=== PATIENT | male | born 1930 | race Caucasian/White ===

== ENCOUNTER 2020-05-14 08:20 | Day surgery (SDC) | payer MEDICARE, BC ==
[~2020-05-14] VITALS: Ht 167.6 cm; Wt 70.0 kg
[2020-05-14] VITALS (7 sets, daily range): BP systolic 98–163; BP diastolic 42–75; PULSE 52–63; TEMP 97–98.3
[~2020-05-14 08:20] MED LIST: CALCITRIOL PO; COZAAR100 MG PO; FLOMAX 0.40.4 MG/CAP PO; LASIX 20MG TABL20 MG PO; LASIX 40MG TABL40 MG PO; LOPRESSOR 225 MG/TAB PO; LOPRESSOR 550 MG/TAB PO; NORVASC 5MG5 MG/TAB PO; PROTONIX 40MG T40 MG PO; TOPROL XL100 MG PO; ZOFRAN ODT4 MG PO; ZOLOFT 25MG25 MG PO; ZYLOPRIM 100MG100 MG PO
[2020-05-14 09:46] LABS: CALCIUM 8.8 mg/dL (8.4-10.2); CREATININE, serum 2.81 (0.66-1.25); POTASSIUM 4.4 mmol/L (3.4-5.0)
[2020-05-14] MEDS ORDERED: TYLENOL SU650 MG/SUP RC (09:52)
[2020-05-14] MEDS ORDERED: VENTOLIN0.09 MG IH (09:53)
[2020-05-14] MEDS ORDERED: NORVASC 5MG5 MG/TAB PO (09:54)
[2020-05-14] MEDS ORDERED: BIOTENE DRY M1000 ML PO (09:55)
[2020-05-14] MEDS ORDERED: DULCOLAX S10 MG/SUPP RC (09:56)
[2020-05-14] MEDS ORDERED: COZAAR100 MG PO (09:57)
[2020-05-14] MEDS ORDERED: DEBROX OT (09:58)
[2020-05-14] MEDS ORDERED: FLOMAX 0.40.4 MG/CAP PO (09:58)
[2020-05-14] MEDS ORDERED: IMODIUM 2MG CAPS2 MG PO (09:59)
[2020-05-14] MEDS ORDERED: LASIX 80MG TABL80 MG PO (10:01)
[2020-05-14] MEDS ORDERED: MILK OF MA400 MG/52 PO (10:02)
[2020-05-14] MEDS ORDERED: PROTONIX 40MG T40 MG PO (10:02)
[2020-05-14] MEDS ORDERED: TOPROL XL100 MG PO (10:04)
--- NOTE | 2020-05-14 10:04 | NUR ---
Initial visit; Patient thanked Telecasting Technician for offering prayer prior to his surgical procedure.
[2020-05-14] MEDS ORDERED: TYLENOL 325MG325 MG PO (10:05)
[2020-05-14] MEDS ORDERED: ZOLOFT 25MG25 MG PO (10:06)
[2020-05-14] MEDS ORDERED: ZOFRAN 4MG T4 MG/TAB PO (10:06)
--- NOTE | 2020-05-14 12:40 | NUR ---
TO RM 6 PER CART FROM OR. AROUSES TO VERBAL STIMULI AND FALLS BACK TO SLEEP. LEFT ARM FLACID FROM BLOCK. LI SET OVER INCISION SITE CLEAN DRY INTACT. THRILL NOTED LEFT ARM. NO SIGNS OF PAIN PER GRIMACE
--- NOTE | 2020-05-14 12:55 | NUR ---
O2 SAT 89-90% WHEN SLEEPING. PLACED 2L PER NC AND SATS ELEVATED TO 99% ON ROOM AIR.
--- NOTE | 2020-05-14 13:40 | NUR ---
CONTINUES TO SLEEP SOUNDLY AND SNORING AT TIMES. 02 SAT 100% ON 2L.
--- NOTE | 2020-05-14 14:00 | NUR ---
SLEEPING- NO CHANGES
--- NOTE | 2020-05-14 14:30 | NUR ---
MORE AWAKE AND TAKING SIPS OF WATER. REFUSED ANYTHIING TO EAT. DISCONTINUED O2
--- NOTE | 2020-05-14 14:30 | NUR ---
ABLE TO MOVE LEFT ARM. GOOD THRILL NOTED AT FISTULA SITE.
--- NOTE | 2020-05-14 14:45 | NUR ---
REPORT CALLED TO BINH AT [facility], INFORMED HER THAT PATIENT HAS DC INSTRUCTIONS. DEPENDS CHECKED AND ARE DRY. ATTEMPTED TO CALL [facility]- UNABLE TO LEAVE MESSAGE. PATIENT RECEIVED DISCHARGE INSTRUCTIONS AND VERBALIZED UNDERSTANDING- RECEIVED FOLDER WITH DISCHARGE INFORMATION DISCONTINUED IV AND INT ASSISTED PATIENT DRESSED AND 2 ASSISTED PATIENT BACK INTO WC FROM [facility].
--- NOTE | 2020-05-14 15:15 | NUR ---
DISCAHRGED PER WC BY NURSING STAFF TO PRIVATE CAR IN CARE JENNIFERK STAFF.
== END 2020-05-14 15:36 | disposition home or self-care (01) ==
LOC: SDCO 08:20
PROVIDERS: Surgery
DX: E11.22 Type 2 diabetes mellitus with diabetic chronic kidney disease (principal); I12.0 Hypertensive chronic kidney disease with stage 5 chronic kidney disease or end stage renal disease; N18.6 End stage renal disease; D63.1 Anemia in chronic kidney disease; E11.21 Type 2 diabetes mellitus with diabetic nephropathy; F32.9 Major depressive disorder, single episode, unspecified; Z99.2 Dependence on renal dialysis; Z79.899 Other long term (current) drug therapy
CPT/HCPCS: J0690; J1644; J2250; J2405; J2704; J7030

== ENCOUNTER → 2020-09-07 | Outpatient (CLI) | payer MEDICARE, BC ==
[~2020-09-07] VITALS: Ht 165.1 cm; Wt 70.5 kg
[~2020-09-07] MED LIST changes: +BIOTENE DRY M1000 ML PO; +CEPHALEXIN500 M1 PO; +DEBROX OT; +DULCOLAX S10 MG/SUPP RC; +IMODIUM 2MG CAPS2 MG PO; +LASIX 80MG TABL80 MG PO; +MILK OF MA400 MG/52 PO; +NORVASC 10MG10 MG PO; +NORVASC2.5 MG PO; +PHOSLO667 MG PO; +PLAVIX 75MG TAB75 MG PO; +TYLENOL 325MG325 MG PO; +TYLENOL SU650 MG/SUP RC; +VENTOLIN0.09 MG IH; +ZOFRAN 4MG T4 MG/TAB PO
[2020-09-07 08:22] VITALS: BP 170/70; PULSE 76
[2020-09-07 09:00] VITALS: BP 175/78; PULSE 69
== END ==
LOC: COL.RAD 07:36
DX: N18.6 End stage renal disease (principal); Z99.2 Dependence on renal dialysis

== ENCOUNTER 2021-01-19 10:26 | Outpatient (CLI) | payer MEDICARE, BC ==
[~2021-01-19] VITALS: Ht 165.2 cm; Wt 64.9 kg
[2021-01-19] VITALS (7 sets, daily range): BP systolic 147–158; BP diastolic 60–90; PULSE 51–74; TEMP 97.8
--- NOTE | 2021-01-19 15:12 | NUR ---
Pt returned to express unit at 1340 s/p AV fistulogram. Pt did well during recovery, remaining conversant with son, eating lunch. Dr. Castro came in to see pt after 1630 and advised that pt could go home. no bleeding or any other problems were observed with fistula. IV was dc'd with cath intact, dressing was applied. I reviewed dc instructions with pt and son, both of whom denied any questions about these instructions. pt escorted to exit via his own wheelchair.
[2021-05-06] MEDS ORDERED: BIOTENE MOIST44.3 ML PO (08:17)
== END 2021-01-19 16:44 | disposition home or self-care (01) ==
LOC: COL.CAR 10:26
DX: T82.858A Stenosis of other vascular prosthetic devices, implants and grafts, initial encounter (principal); Z87.891 Personal history of nicotine dependence
CPT/HCPCS: C1725; C1769; C1894; J1644; J2250; J3010; Q9967

== ENCOUNTER 2021-01-27 19:44 | Emergency (ER) | payer MEDICARE, BC ==
[2021-01-27 19:48] VITALS: TEMP 97.8
[2021-01-27 20:04] LABS: BASO % 0.4 % (0.0-2.0); EOS # 0.2 (0.0-0.7); GRAN # 2.4 (1.4-6.5); GRAN % 50.5 % (42.2-75.2); HEMOGLOBIN 13.4 g/dl (13.5-18.0); LYMPH # 1.5 (1.2-3.4); MEAN CELL VOLUME 104 fl (80.0-100.0); MEAN CORPUSCULAR HEMOGLOBIN 34 pg (27.0-31.0); MEAN CORPUSCULAR HGB CONC 33 g/dl (33.0-37.0); MEAN PLATELET VOLUME 10.3 fl (7.4-10.4); MONO # 0.6 (0.1-0.6); MONO % 11.9 % (1.7-9.3); PLATELET COUNT 145 K/mm3 (130-400); RED BLOOD COUNT 3.96 M/mm3 (4.20-5.60); REDCELL DISTRIBUTION WIDTH-CV 14.6 % (11.5-14.5)
[2021-01-27] MEDS ORDERED: COLACE 100100 MG/CAP PO (20:07)
[2021-01-27 20:11] LABS: INR 1.1 (0.8-3.0); PROTHROMBIN TIME 12.2 SECONDS (9.7-12.8)
[2021-01-27 20:13] LABS: CALCIUM 9.5 mg/dL (8.4-10.2); CREATININE, serum 2.67 (0.66-1.25); PARTIAL THROMBOPLASTIN TIME 43.4 SECONDS (26.0-37.0); POTASSIUM 3.8 mmol/L (3.4-5.0)
[2021-01-27 20:44] VITALS: BP 167/76; PULSE 71
[2021-05-06] MEDS ORDERED: BIOTENE MOIST44.3 ML PO (08:17)
== END 2021-01-27 20:48 | disposition home or self-care (01) ==
LOC: COL.ER 19:44
PROVIDERS: Emergency Medicine
DX: T82.838A Hemorrhage due to vascular prosthetic devices, implants and grafts, initial encounter (principal)

== ENCOUNTER 2021-04-05 19:13 | Emergency (ER) | payer MEDICARE, BC ==
[~2021-04-05] VITALS: Ht 167.6 cm; Wt 62.7 kg
[~2021-04-05 19:13] MED LIST changes: +COLACE 100100 MG/CAP PO
[2021-04-05 20:35] VITALS: BP 160/50; PULSE 61
[2021-05-06] MEDS ORDERED: BIOTENE MOIST44.3 ML PO (08:17)
== END 2021-04-05 20:40 | disposition home or self-care (01) ==
LOC: COL.ER 19:13
DX: T82.838A Hemorrhage due to vascular prosthetic devices, implants and grafts, initial encounter (principal); X58.XXXA Exposure to other specified factors, initial encounter

== ENCOUNTER → 2021-05-06 | Outpatient (CLI) | payer MEDICARE, BC ==
[~2021-05-06] VITALS: Ht 167.6 cm; Wt 64.5 kg
[2021-05-06] VITALS (9 sets, daily range): BP systolic 93–168; BP diastolic 62–85; PULSE 59–84; TEMP 98.2
[~2021-05-06] MED LIST changes: +AMOXICILLIN 50500 MG PO; +BIOTENE MOIST44.3 ML PO; +COREG 6.256.25 MG/TA PO; +LEVAQUIN 5500 MG/TA1 PO; +REGLAN 5MG T5 MG/TAB PO; +SENOKOT8.6 MG PO
--- NOTE | 2021-05-06 09:40 | NUR ---
SEE MERGE FOR ALL MEDICATION ADMINISTRATION TIMES, INTRA AND POST SEDATION ASSESSMENTS
--- NOTE | 2021-05-06 10:37 | NUR ---
pt back from oil laboratory analyst, pt is awake and alert, resting comfortably on stretcher. puncture site to paula fistual covered with clean dry and intact bandaid. no evidence of bleeding. thrill present now in a broader region of fistula than prior to fistulogram. pt awar eof poc for monitoring x 2 hours, call light in reach, lunch ordered, wctm
--- NOTE | 2021-05-06 12:56 | NUR ---
PT is ready for discharge. pt has had no problems during recovery, he has been napping, but otherwise is awake and alert, pwd, with reg and unlabored resps. no bleeding at puncture site. pt has eaten lunch, and has been up to bathroom via wheelchair, transferring and taking a few steps independently with no problem. Dr. Castro stopped to see pt before pt discharged. iv dc'd with cath intact, dressing is applied.
== END ==
LOC: COL.CAR 08:00
DX: T85.858A Stenosis due to other internal prosthetic devices, implants and grafts, initial encounter (principal); T82.838A Hemorrhage due to vascular prosthetic devices, implants and grafts, initial encounter; Z99.2 Dependence on renal dialysis; Z87.891 Personal history of nicotine dependence
CPT/HCPCS: C1725; C1769; C1894; J1644; J2250; J3010; Q9967

== ENCOUNTER 2021-06-18 10:06 | Emergency (ER) | payer MEDICARE, BC ==
[~2021-06-18] VITALS: Ht 167.6 cm; Wt 63.6 kg
[~2021-06-18 10:06] MED LIST changes: -AMOXICILLIN 50500 MG PO; -COREG 6.256.25 MG/TA PO; -LEVAQUIN 5500 MG/TA1 PO; -REGLAN 5MG T5 MG/TAB PO; -SENOKOT8.6 MG PO
[2021-06-18 10:20] VITALS: TEMP 97.9
[2021-06-18 11:34] LABS: BASO % 0.4 % (0.0-2.0); EOS # 0.2 (0.0-0.7); EOS % 3.9 % (0-4.0); GRAN # 3.1 (1.4-6.5); GRAN % 58.7 % (42.2-75.2); HEMOGLOBIN 10.8 g/dl (13.5-18.0); LYMPH # 1.4 (1.2-3.4); LYMPH % 25.7 % (20.0-51.0); MEAN CELL VOLUME 109 fl (80.0-100.0); MEAN CORPUSCULAR HEMOGLOBIN 36 pg (27.0-31.0); MEAN CORPUSCULAR HGB CONC 33 g/dl (33.0-37.0); MEAN PLATELET VOLUME 10.6 fl (7.4-10.4); MONO # 0.6 (0.1-0.6); MONO % 10.9 % (1.7-9.3); PLATELET COUNT 108 K/mm3 (130-400); RED BLOOD COUNT 3.03 M/mm3 (4.20-5.60)
[2021-06-18 11:48] LABS: ALBUMIN 3.9 gm/dL (3.5-5.0); BILIRUBIN,TOTAL 0.6 mg/dL (0.0-1.0); CALCIUM 10.2 mg/dL (8.4-10.2); CREATININE, serum 4.13 (0.66-1.25); TOTAL PROTEIN 6.7 gm/dL (6.4-8.2)
[2021-06-18 12:02] LABS: TROPONIN-I 0.054 ng/mL (0.000-0.035)
[2021-06-18 12:22] LABS: TSH w REFLEX 1.049 uIU/mL (0.350-4.940)
[2021-06-18 12:26] LABS: COLLECTION METHOD CLEAN CATCH
[2021-06-18 12:35] LABS: PH 6 (5-8); SQUAMOUS EPITHELIAL None Seen /hpf; URINE APPEARANCE Clear; URINE BACTERIA None Seen /hpf; URINE BILIRUBIN Negative (NEGATIVE); URINE BLOOD 1+ (NEGATIVE); URINE COLOR Yellow; URINE GLUCOSE Negative (NEGATIVE); URINE KETONE Negative (NEGATIVE); URINE LEUKOCYTE ESTERASE Negative (NEGATIVE); URINE NITRATE Negative (NEGATIVE); URINE PROTEIN(semi-quant) 2+ (NEGATIVE); URINE RBC 0-2 /hpf; URINE UROBILINOGEN Negative (NEGATIVE)
[2021-06-18 15:45] VITALS: BP 170/61; PULSE 62
== END 2021-06-18 15:52 | disposition home or self-care (01) ==
LOC: COL.ER 10:06
PROVIDERS: Emergency Medicine
DX: R53.83 Other fatigue (principal); R74.8 Abnormal levels of other serum enzymes; E11.42 Type 2 diabetes mellitus with diabetic polyneuropathy; D63.1 Anemia in chronic kidney disease; E11.22 Type 2 diabetes mellitus with diabetic chronic kidney disease; I12.9 Hypertensive chronic kidney disease with stage 1 through stage 4 chronic kidney disease, or unspecified chronic kidney disease; N18.4 Chronic kidney disease, stage 4 (severe); F32.9 Major depressive disorder, single episode, unspecified; Z79.899 Other long term (current) drug therapy; Z20.822 Contact with and (suspected) exposure to COVID-19

== ENCOUNTER 2021-07-02 15:47 | Inpatient (IN) | payer MEDICARE, BC ==
[~2021-07-02] VITALS: Ht 167.6 cm; Wt 63.4 kg
[2021-07-02 20:16] LABS: BASO % 0.4 % (0.0-2.0); EOS # 0.2 (0.0-0.7); EOS % 2.9 % (0-4.0); GRAN # 5.5 (1.4-6.5); GRAN % 70.5 % (42.2-75.2); HEMOGLOBIN 11.9 g/dl (13.5-18.0); LYMPH # 1.4 (1.2-3.4); LYMPH % 17.7 % (20.0-51.0); MEAN CELL VOLUME 101 fl (80.0-100.0); MEAN CORPUSCULAR HEMOGLOBIN 35 pg (27.0-31.0); MEAN CORPUSCULAR HGB CONC 35 g/dl (33.0-37.0); MONO # 0.6 (0.1-0.6); MONO % 8.2 % (1.7-9.3); PLATELET COUNT 149 K/mm3 (130-400); RED BLOOD COUNT 3.42 M/mm3 (4.20-5.60); REDCELL DISTRIBUTION WIDTH-CV 12.8 % (11.5-14.5)
[2021-07-02 20:20] LABS: HEMATOCRIT 34.5 % (42.0-52.0)
[2021-07-02 20:31] LABS: ALBUMIN 4.1 gm/dL (3.4-4.8); BILIRUBIN,TOTAL 0.7 mg/dL (0.2-1.2); CALCIUM 9.7 mg/dL (8.4-10.2); CREATININE, serum 1.9 mg/dL (0.72-1.25); TOTAL PROTEIN 7.8 gm/dL (6.2-8.1)
[2021-07-02 20:40] LABS: POTASSIUM 2.9 mmol/L (3.5-4.5)
[2021-07-02 20:46] LABS: ERYTHROCYTE SEDIMENTATION RATE 13 mm/hr (0-30)
[2021-07-02 20:50] LABS: TSH w REFLEX 0.693 uIU/mL (0.350-4.940)
--- NOTE | 2021-07-02 20:59 | NUR ---
Patient came to the unit, alert and oriente x 4, he has difficulty hearing but he does not use heraring aids. Complains about weakness and headache. Right now resting in bed. Received lab call notifiing low potassium of 2.9. It will be replaced.
[2021-07-02 21:17] VITALS: BP 162/82; PULSE 84; TEMP 98.6
--- NOTE | 2021-07-02 23:19 | NUR ---
Contacted Dr Hester by phone and he indicated do not replace potassium.
[2021-07-03] VITALS (7 sets, daily range): BP systolic 132–166; BP diastolic 52–75; PULSE 62–86; TEMP 97.4–98.3
--- NOTE | 2021-07-03 04:45 | NUR ---
Patient reports headache, required tylenol, provided.
[2021-07-03] MEDS ORDERED: SENOKOT8.6 MG PO (05:08)
--- NOTE | 2021-07-03 05:15 | NUR ---
PT AMBULATED TO RESTROOM, TOLERATED WELL. PT REQUESTING TO TAKE HOME SENNOSIDE MEDICATION. PILL BOTTLE PROVIDED. EDUCATED PT THAT MEDICATIONS COME FROM PHARMACY. ADDED MEDICATION INTO MED RECONCILIATION. PT'S NURSE NOTIFIED OF PT WANTING HOME MEDICATION.
--- NOTE | 2021-07-03 06:45 | NUR ---
Patient has had a calm night. No other needs more than the headache. He went to the restroom once with help x 1. Able to walk by himself with the walker but still seems weak. SCDs on. Shift report given to day nurse.
[2021-07-03 06:56] LABS: BASO % 0.3 % (0.0-2.0); EOS # 0.2 (0.0-0.7); EOS % 3.5 % (0-4.0); GRAN # 4.1 (1.4-6.5); GRAN % 64.8 % (42.2-75.2); HEMOGLOBIN 10.4 g/dl (13.5-18.0); LYMPH # 1.3 (1.2-3.4); MEAN CELL VOLUME 105 fl (80.0-100.0); MEAN CORPUSCULAR HEMOGLOBIN 35 pg (27.0-31.0); MEAN CORPUSCULAR HGB CONC 33 g/dl (33.0-37.0); MEAN PLATELET VOLUME 11.6 fl (7.4-10.4); MONO # 0.7 (0.1-0.6); MONO % 11.2 % (1.7-9.3); PLATELET COUNT 134 K/mm3 (130-400); RED BLOOD COUNT 2.97 M/mm3 (4.20-5.60); REDCELL DISTRIBUTION WIDTH-CV 12.7 % (11.5-14.5)
[2021-07-03 06:59] LABS: HEMATOCRIT 31.3 % (42.0-52.0)
[2021-07-03 07:08] LABS: ALBUMIN 3.5 gm/dL (3.4-4.8); ALKALINE PHOSPHATASE 56 U/L (0-750); ANION GAP 13 mmol/L; AST,SGOT 20 U/L (5-34); BILIRUBIN,TOTAL 0.7 mg/dL (0.2-1.2); BLOOD UREA NITROGEN 19 mg/dL (8-26); CARBON DIOXIDE 25 mEq/L (23-31); CHLORIDE 104 mmol/L (98-107); CREATININE, serum 2.63 mg/dL (0.72-1.25); GLUCOSE 105 mg/dL (70-99); PHOSPHOROUS 2.5 mg/dL (2.3-4.7); POTASSIUM 3.1 mmol/L (3.5-4.5); SODIUM 142 mmol/L (136-145); TOTAL PROTEIN 6.5 gm/dL (6.2-8.1)
[2021-07-03 07:18] LABS: ALANINE AMINOTRANSFERASE < 6 U/L (0-55)
--- NOTE | 2021-07-03 08:29 | NUR ---
Patient awake lying in bed upon entering the room. This RN assisted with sitting up on the edge of the bed. Scheduled medications given. Shift assessment preformed. Patient assisted with oral care. Breakfast ordered. Patient denies any pain, discomfort, SOA, or further needs at this time. Call light in reach. Bed alarm on.
--- NOTE | 2021-07-03 12:21 | NUR ---
Plan is to return home to [facility] with Son Jameel. Patient reports that he resides in [facility] and his son is the one who bought him to the hospital. Patient denies knowing son's phone number. Patient reports that he resides alone and has a but she is in [facility] in [facility] and she was placed in care approximately a week ago. Patient shares that Dr. Vides, Dr. Wright are the patient care physcians. Patient uses [facility] for care supports. Patient reports that he uses a walker and wheelchair and has a pacemaker. Patient denies being in any pain just tired. Patient shares that he is short of breath even when using the walker or sitting int he wheel chair. Educated patient on supports of care. Patient stated that he could go home and is feeling better. Will follow for care.
--- NOTE | 2021-07-03 17:06 | NUR ---
Patient has had an ok day. Surgery consult for EGD called, patient will be NPO after midnight. Patient has been eating ok for me today. Has not C/O any pain discomfort, or SOA. Patient denies any further needs at thist time. Call light in reach. VSS. Patient A&O.
--- NOTE | 2021-07-03 17:41 | NUR ---
Consent for EGD signed and on the chart.
--- NOTE | 2021-07-03 18:43 | NUR ---
Patient up to the restroom. Unable to have BM, only gas.
--- NOTE | 2021-07-03 22:00 | NUR ---
Patient is resting in bed, alert and oriented x 4, VSS, denies vomiting or nausea. Complains of headache. Assisted to the restroom. Higiene provided. Dentures removed. Assessment completed, medications provided. No further needs at this time, call light within reach.
[2021-07-04] VITALS (9 sets, daily range): BP systolic 133–177; BP diastolic 49–73; PULSE 61–94; TEMP 94.4–98.2
--- NOTE | 2021-07-04 06:21 | NUR ---
Patient has been stable. He feels more comfotable using the urinal than going to the restroom. Bladder scan shows 389ml. No further needs at this time. Shift report will be given to day nurse.
[2021-07-04 06:55] LABS: BASO % 0.1 % (0.0-2.0); EOS # 0.2 (0.0-0.7); EOS % 3.1 % (0-4.0); GRAN # 4.8 (1.4-6.5); GRAN % 67.6 % (42.2-75.2); HEMOGLOBIN 10.5 g/dl (13.5-18.0); LYMPH # 1.2 (1.2-3.4); LYMPH % 17.5 % (20.0-51.0); MEAN CELL VOLUME 101 fl (80.0-100.0); MEAN CORPUSCULAR HEMOGLOBIN 35 pg (27.0-31.0); MEAN CORPUSCULAR HGB CONC 35 g/dl (33.0-37.0); MEAN PLATELET VOLUME 11.3 fl (7.4-10.4); MONO # 0.8 (0.1-0.6); MONO % 11.4 % (1.7-9.3); PLATELET COUNT 127 K/mm3 (130-400); RED BLOOD COUNT 3.01 M/mm3 (4.20-5.60); REDCELL DISTRIBUTION WIDTH-CV 12.6 % (11.5-14.5)
[2021-07-04 06:56] LABS: HEMATOCRIT 30.4 % (42.0-52.0)
[2021-07-04 07:11] LABS: ALBUMIN 3.5 gm/dL (3.4-4.8); ALKALINE PHOSPHATASE 59 U/L (0-750); ANION GAP 12 mmol/L; AST,SGOT 15 U/L (5-34); BILIRUBIN,TOTAL 0.6 mg/dL (0.2-1.2); BLOOD UREA NITROGEN 33 mg/dL (8-26); CALCIUM 8.4 mg/dL (8.4-10.2); CARBON DIOXIDE 26 mEq/L (23-31); CHLORIDE 102 mmol/L (98-107); CREATININE, serum 3.62 mg/dL (0.72-1.25); GLUCOSE 106 mg/dL (70-99); PHOSPHOROUS 2.7 mg/dL (2.3-4.7); POTASSIUM 3.2 mmol/L (3.5-4.5); SODIUM 140 mmol/L (136-145); TOTAL PROTEIN 6.6 gm/dL (6.2-8.1)
[2021-07-04 07:15] LABS: ALANINE AMINOTRANSFERASE < 6 U/L (0-55)
--- NOTE | 2021-07-04 10:12 | NUR ---
Assessment completed, alert/oriented, vital signs stable, denies pain this morning, denies any N/V, BS+, he has been NPO for EGD this morning and consent is signed, heart RRR, lungs CTA/ no resp.difficulty, left arm fistula + bruit/thrill, denies needs at this time, will continue to monitor
--- NOTE | 2021-07-04 11:30 | NUR ---
Patient returned from ENdoscopy at this time, alert/oriented, vital signs stable, denies pain, will continue to monitor
--- NOTE | 2021-07-04 20:25 | NUR ---
PATIENT IS CALM IN BED SITTING AT THE BEDSIDE.PATIENT IS A SBA.PATIENT DENIES PAIN.NIGHT MEDS GIVEN.ASSESSMENT DONE.SAFETY MEASURES IN PLACE.NO OTHER NEEDS AT THIS TIME.
[2021-07-05] VITALS (7 sets, daily range): BP systolic 139–177; BP diastolic 47–78; PULSE 67–79; TEMP 97.5–98.6
--- NOTE | 2021-07-05 04:29 | NUR ---
PATIENT HAD A CALM NIGHT.PATIENT HAD A COUPLE OF LOOSE BMS.DENIES PAIN.PATIENT IS A ONE ASSIST.SAFETY MEASURES IN PLACE.NO OTHER NEEDS AT THIS TIME.
[2021-07-05 07:09] LABS: BASO % 0.2 % (0.0-2.0); EOS # 0.2 (0.0-0.7); EOS % 1.5 % (0-4.0); GRAN # 7.7 (1.4-6.5); GRAN % 77.9 % (42.2-75.2); LYMPH # 1.2 (1.2-3.4); LYMPH % 12.4 % (20.0-51.0); MEAN CELL VOLUME 105 fl (80.0-100.0); MEAN CORPUSCULAR HEMOGLOBIN 35 pg (27.0-31.0); MEAN CORPUSCULAR HGB CONC 34 g/dl (33.0-37.0); MEAN PLATELET VOLUME 11.4 fl (7.4-10.4); MONO # 0.8 (0.1-0.6); MONO % 7.6 % (1.7-9.3); PLATELET COUNT 150 K/mm3 (130-400); RED BLOOD COUNT 3.13 M/mm3 (4.20-5.60); REDCELL DISTRIBUTION WIDTH-CV 12.6 % (11.5-14.5)
[2021-07-05 07:13] LABS: HEMATOCRIT 32.7 % (42.0-52.0)
[2021-07-05 07:40] LABS: ALBUMIN 3.6 gm/dL (3.4-4.8); CALCIUM 8.8 mg/dL (8.4-10.2); CREATININE, serum 4.55 mg/dL (0.72-1.25); PHOSPHOROUS 3.1 mg/dL (2.3-4.7); POTASSIUM 3.3 mmol/L (3.5-4.5); TOTAL PROTEIN 7.1 gm/dL (6.2-8.1)
[2021-07-05 07:51] LABS: BILIRUBIN,TOTAL 0.6 mg/dL (0.2-1.2)
--- NOTE | 2021-07-05 08:11 | NUR ---
PT PLEASANT, AOX4, DENIES PAIN, ASSISTED PT TO SIT UP AT THE EDGE OF THE BED FOR BREAKFAST, ASSESSMENT PERFORMED, MEDICATIONS GIVEN, WILL REASSESS BP AFTER SCHEDULED BP MEDS GIVEN, DIALYSIS SCHEDULED FOR 1200 AND PT NOTIFIED, ASSISTED PT WITH PLACING DENTURES, NO OTHER NEEDS AT THIS TIME.
--- NOTE | 2021-07-05 09:44 | NUR ---
[facility] called and has accepted patient when he discharges
--- NOTE | 2021-07-05 09:45 | NUR ---
BP REASSESSED AND HYDRALAZINE GIVEN PER ORDERS.
--- NOTE | 2021-07-05 10:09 | NUR ---
Initial visit; Patient thanked Splitting Machine Operator for looking in on him and offering prayer and God's blessings. Splitting Machine Operator will follow up while patient is here at our hospital.
--- NOTE | 2021-07-05 11:48 | NUR ---
Dr. Wright asked this worker to see if there is availability at [facility]. SW spoke with Amanda at [facility] and there may be a bed tomorrow. SW spoke with patient at bedside and he is agreeable to rehab prior to going home. Referrals sent to 1)[facility], 2)[facility], 3)[facility]. SW will continue to follow pt's needs. *D/C to [facility]
--- NOTE | 2021-07-05 15:02 | NUR ---
Patient tolerated HD tx with 3L fluid removal. Next tx pending labs & assessment.
--- NOTE | 2021-07-05 16:13 | NUR ---
PT REPORTING SOB AND STATES "I CAN'T BREATHE". VITALS TAKEN AND NORMAL, ENCOURAGED PT TO TAKE BREATHES AND TO SLOW HIS BREATHING. PT APPEARS TO HAVE SHORT BURSTS OF COUGHING NAD THEN BREATHING VERY SHALLOW. ENCOURAGED DEEP COUGHS AND THEN DEEP BREATHING. PT WITH THEN STOP HAVING LABORED BREATHS TO ASK FOR CERTAIN ITEMS IN THE ROOM W/O A LABORED BREATH AND THEN RETURN TO THE COUGH WITH SHALLOW BREATH.
--- NOTE | 2021-07-05 17:28 | NUR ---
RADIOLOGY CALLED ABOUT XRAY. PT BREATHING EASY, PT DENIES NEED FOR DINNER BUT REQUESTED PEANUT BUTTER AND CRACKERS WHICH WERE PROVIDED. PT PLEASANT, STILL FEELS PHSYCIALLY WEEK. NO OHTER NEEDS
[2021-07-06] VITALS (8 sets, daily range): BP systolic 126–174; BP diastolic 48–78; PULSE 61–81; TEMP 97.6–98.7
--- NOTE | 2021-07-06 00:07 | NUR ---
Patient assessed around 1949. Denies pain and discomfort. INT to right wrist, left upper extremity restriction, AV fistula to LUE with positive bruit and thrill. Dressing CDI. Denies SOB and dyspnea. Voices no questions, needs, or concerns at this time. Resting in bed with call light within reach.
--- NOTE | 2021-07-06 03:46 | NUR ---
Patient complaining of headache. Given PRN Acetaminophen as requested. BP elevated. Given PRN Appresoline per orders.
[2021-07-06 06:39] LABS: BASO % 0.1 % (0.0-2.0); EOS # 0.1 (0.0-0.7); EOS % 1.3 % (0-4.0); GRAN # 7.8 (1.4-6.5); GRAN % 76.5 % (42.2-75.2); HEMOGLOBIN 10.4 g/dl (13.5-18.0); LYMPH # 1.2 (1.2-3.4); LYMPH % 11.9 % (20.0-51.0); MEAN CELL VOLUME 104 fl (80.0-100.0); MEAN CORPUSCULAR HEMOGLOBIN 34 pg (27.0-31.0); MEAN CORPUSCULAR HGB CONC 33 g/dl (33.0-37.0); MEAN PLATELET VOLUME 11.4 fl (7.4-10.4); MONO % 9.8 % (1.7-9.3); PLATELET COUNT 148 K/mm3 (130-400); RED BLOOD COUNT 3.03 M/mm3 (4.20-5.60); REDCELL DISTRIBUTION WIDTH-CV 12.7 % (11.5-14.5)
[2021-07-06 06:43] LABS: HEMATOCRIT 31.5 % (42.0-52.0)
[2021-07-06 07:07] LABS: ALANINE AMINOTRANSFERASE < 6 U/L (0-55); ALBUMIN 3.3 gm/dL (3.4-4.8); ALKALINE PHOSPHATASE 68 U/L (0-750); ANION GAP 14 mmol/L; AST,SGOT 12 U/L (5-34); BILIRUBIN,TOTAL 0.6 mg/dL (0.2-1.2); BLOOD UREA NITROGEN 32 mg/dL (8-26); CALCIUM 8.9 mg/dL (8.4-10.2); CARBON DIOXIDE 23 mEq/L (23-31); CHLORIDE 105 mmol/L (98-107); CREATININE, serum 3.41 mg/dL (0.72-1.25); GLUCOSE 132 mg/dL (70-99); PHOSPHOROUS 2.3 mg/dL (2.3-4.7); POTASSIUM 3.4 mmol/L (3.5-4.5); SODIUM 142 mmol/L (136-145); TOTAL PROTEIN 6.6 gm/dL (6.2-8.1)
--- NOTE | 2021-07-06 09:30 | NUR ---
PT PLEASANT, AOX4, DENIES PAIN, REPORTS SOB BUT PT BREATHING IS NONLABORED AT THIS TIME. PT ASSESSMENT PERFORMED, MEDICATIONS GIVEN, PT SITTING UP AT EDGE OF BED FOR BREAKFAST TO BE DELIVERED. VITALS TAKEN/REVIEWED, NO OTHER NEEDS
--- NOTE | 2021-07-06 13:20 | NUR ---
KJ contacted pt's son, Jameel, who states they have a family support group and faith members who alterate transporting patient to dialysis Mon. & Mon. Jameel transports patient on Fridays. KJ discussed with Jameel the placement options I am working on and he is agreeable whether pt goes to [facility] or [facility]. SW will keep him updated.
--- NOTE | 2021-07-06 13:32 | NUR ---
SW contacted [facility], spoke with Erick. Referral faxed to [phone]. They have availability and will review referral and respond. SW will follow up.
--- NOTE | 2021-07-06 16:06 | NUR ---
KJ attempted to contact Erick, admission coord at [facility] but no answer. This worker left her a detailed message about whether they would be willing to accept patient. Earlier conversation with Erick sounded like they were leaning towards "not" accepting pt. KJ then called [facility], and informed her of the above. They may have a patient they can change the chair time on in exchange with this patient but they won't know until tomorrow. KJ will follow up with FELIPE/Jerry once we know about the chair time change.
--- NOTE | 2021-07-06 17:41 | NUR ---
REPORTS SOB IN AM, DENIES PAIN DURING SHIFT, OVERALL UNEVENTFUL, WAITING FOR PLACEMENT
--- NOTE | 2021-07-06 20:30 | NUR ---
Patient is resting in bed, alert and oriented x 4, VSS, no pain, nausea or vomiting. Assessment completed, no further needs at this time. Call light within reach.
[2021-07-07 03:31] VITALS: BP 164/68; PULSE 72; TEMP 98
--- NOTE | 2021-07-07 03:57 | NUR ---
BP 164/68 Hydralazine provided.
--- NOTE | 2021-07-07 05:51 | NUR ---
Patient has had a calm night. He has been resting with no problems more than her roger blood pressure. No further needs. Shift report will be given to day nurse.
[2021-07-07 07:26] VITALS: BP 154/64; PULSE 76; TEMP 97.8
[2021-07-07 08:01] LABS: BASO % 0.1 % (0.0-2.0); EOS # 0.3 (0.0-0.7); EOS % 3.4 % (0-4.0); GRAN # 6.1 (1.4-6.5); GRAN % 67.2 % (42.2-75.2); HEMOGLOBIN 10.2 g/dl (13.5-18.0); LYMPH # 1.7 (1.2-3.4); LYMPH % 18.4 % (20.0-51.0); MEAN CELL VOLUME 105 fl (80.0-100.0); MEAN CORPUSCULAR HEMOGLOBIN 35 pg (27.0-31.0); MEAN CORPUSCULAR HGB CONC 33 g/dl (33.0-37.0); MEAN PLATELET VOLUME 11.7 fl (7.4-10.4); MONO % 10.6 % (1.7-9.3); PLATELET COUNT 141 K/mm3 (130-400); RED BLOOD COUNT 2.96 M/mm3 (4.20-5.60); REDCELL DISTRIBUTION WIDTH-CV 12.9 % (11.5-14.5)
[2021-07-07 08:12] LABS: HEMATOCRIT 31.2 % (42.0-52.0)
[2021-07-07 08:27] LABS: ALBUMIN 3.3 gm/dL (3.4-4.8); CALCIUM 8.9 mg/dL (8.4-10.2); CREATININE, serum 4.79 mg/dL (0.72-1.25); PHOSPHOROUS 3.6 mg/dL (2.3-4.7); POTASSIUM 3.7 mmol/L (3.5-4.5)
--- NOTE | 2021-07-07 09:00 | NUR ---
Assessment complete. Pt resting in bed, A&O x 4, denies pain at this time. Saline lock IV to right upper arm without s/s of complications. AV Fistula to left upper arm with strong thrill to palpation. Physical assessment otherwise unremarkable. No further needs reported. Call light in reach.
--- NOTE | 2021-07-07 09:37 | NUR ---
SW spoke with son, Jameel, this a.m. SW (Miriam), from [facility] contacted son and was uncertain about patient receiving adequate p/t and o/t services. She suggested to son Royal Singh in [place]. Son asked this SW if patient could return home with [facility]. This worker discussed home situation with son and patient has intermittent visits from family members but is basically alone for most of the day, except when he goes to dialysis. SW will discuss options with Marily and respond back to son.
--- NOTE | 2021-07-07 11:05 | NUR ---
On 07/05/2021, hospital social worker spoke with Carmen regarding current efforts to place patient in a skilled facility. Worker stressed the difficulties of finding senior care facilities and taking dialysis patient due to their low staffing and inability to transport residents to and from dialysis. munitions worker will continue efforts of securing a safe discharge plan.
[2021-07-07 12:13] VITALS: BP 124/53; PULSE 67; TEMP 97.5
--- NOTE | 2021-07-07 12:50 | NUR ---
Pt to rm 321 for dialysis via .
[2021-07-07] MEDS ORDERED: AMOXICILLIN 50500 MG PO (12:52)
[2021-07-07] MEDS ORDERED: LEVAQUIN 5500 MG/TA1 PO (12:55)
[2021-07-07] MEDS ORDERED: PROTONIX 40MG T40 MG PO (12:56)
[2021-07-07] MEDS ORDERED: REGLAN 5MG T5 MG/TAB PO (12:57)
[2021-07-07] MEDS ORDERED: NORVASC 5MG5 MG/TAB PO (12:58)
--- NOTE | 2021-07-07 12:58 | NUR ---
KJ informed [facility], that patient is walking 250 feet, patient is not being accepted at any facility and son indicated patient could d/c home with [facility]. Patient will be going to dialysis today for his regular chair time and patient 's office thought he could switch with said he did not want to switch. Referral sent to [facility] after contacting agency via phone. Family notified. *D/C plan: home with home health care
[2021-07-07] MEDS ORDERED: COREG 6.256.25 MG/TA PO (13:00)
[2021-07-07 15:05] VITALS: BP 153/73; PULSE 66; TEMP 97.5
--- NOTE | 2021-07-07 15:05 | NUR ---
PATIENT TOLERATED HD TX WITH 2L FLUID REMOVAL. NEXT PLANNED HD TX ON 07/09/21 @ [facility].
--- NOTE | 2021-07-07 15:47 | NUR ---
Pt brought back from dialysis via WC, IV discontinued from right forearm with tip intact, ready for discharge. Pt escorted down to exit where his niece is waiting to provide ride home. Discharge instructions reviewed with pt and pt's niece with emhasis on new medications and the need to take Levaquin when picked up from pharmacy d/t not available in the pyxus prior to pt discharging.
== END 2021-07-07 15:50 | disposition home health service (06) | DRG 391 ==
LOC: MEDICAL 15:47
PROVIDERS: Surgery; ADMIT Internal Medicine Nephrology
PROC: 0DB68ZX Excision of Stomach, Via Natural or Artificial Opening Endoscopic, Diagnostic (ICD-10-PCS; principal; 2021-07-04 10:30)
PROC: 5A1D70Z Performance of Urinary Filtration, Intermittent, Less than 6 Hours Per Day (ICD-10-PCS; 2021-07-07)
DX: K29.70 Gastritis, unspecified, without bleeding (principal); N18.6 End stage renal disease; J18.9 Pneumonia, unspecified organism; I50.23 Acute on chronic systolic (congestive) heart failure; E44.1 Mild protein-calorie malnutrition; I13.2 Hypertensive heart and chronic kidney disease with heart failure and with stage 5 chronic kidney disease, or end stage renal disease; E11.22 Type 2 diabetes mellitus with diabetic chronic kidney disease; D63.1 Anemia in chronic kidney disease; F32.9 Major depressive disorder, single episode, unspecified; E11.319 Type 2 diabetes mellitus with unspecified diabetic retinopathy without macular edema; E83.39 Other disorders of phosphorus metabolism; B96.81 Helicobacter pylori [H. pylori] as the cause of diseases classified elsewhere; E11.43 Type 2 diabetes mellitus with diabetic autonomic (poly)neuropathy; K31.84 Gastroparesis; Z20.822 Contact with and (suspected) exposure to COVID-19; Z99.2 Dependence on renal dialysis; Z68.21 Body mass index [BMI] 21.0-21.9, adult
CPT/HCPCS: J1956; J2704; J7030